=== PATIENT | male | born 1945 | race Caucasian/White ===

== ENCOUNTER 2021-04-07 08:24 | Outpatient (CLI) | payer MEDICARE, OTHER | END 2021-04-07 08:25 | disposition home or self-care (01) | LOC: TBSIIMAG 08:24 | PROVIDERS: ATTEND Urology | DX: R97.20 Elevated prostate specific antigen [PSA] (principal) | CPT/HCPCS: 72197 ==

== ENCOUNTER 2023-11-11 18:35 | Day surgery (SDC) | payer MEDICARE, OTHER ==
[2023-11-11] MEDS ORDERED: PROPOFOL 20 ML ONE (21:43)
[2023-11-11] MEDS ORDERED: Lidocaine 1% PF 5 ML VIAL ONE (21:43)
[2023-11-11] MEDS ORDERED: Succinylcholine 200 MG/10 ml SYRINGE FS ONE (21:43)
== END 2023-11-11 23:25 | disposition home or self-care (01) ==
LOC: SDC 18:35
PROVIDERS: ATTEND Emergency Medicine
PROC: 0DJ08ZZ Inspection of Upper Intestinal Tract, Via Natural or Artificial Opening Endoscopic (ICD-10-PCS; principal; 2023-11-11)
DX: T18.128A Food in esophagus causing other injury, initial encounter (principal); K21.00 Gastro-esophageal reflux disease with esophagitis, without bleeding; K26.9 Duodenal ulcer, unspecified as acute or chronic, without hemorrhage or perforation; E78.5 Hyperlipidemia, unspecified; E11.9 Type 2 diabetes mellitus without complications; Z85.040 Personal history of malignant carcinoid tumor of rectum; Z90.89 Acquired absence of other organs; Z87.891 Personal history of nicotine dependence; Z79.84 Long term (current) use of oral hypoglycemic drugs; Z79.899 Other long term (current) drug therapy
CPT/HCPCS: 36416; J2704

== ENCOUNTER 2025-11-10 07:06 | Outpatient (CLI) | payer MEDICARE, OTHER ==
[2025-11-10 08:29] LABS: Estimated GFR - POC 86.0
[2025-11-10] MEDS ORDERED: Iopamidol 370 76% 100 ML VIAL ONE (09:03)
== END 2025-11-10 07:07 | disposition home or self-care (01) ==
LOC: CT 07:06
PROVIDERS: ATTEND Internal Medicine
DX: R31.0 Gross hematuria (principal); N28.1 Cyst of kidney, acquired; N28.89 Other specified disorders of kidney and ureter; K44.9 Diaphragmatic hernia without obstruction or gangrene
CPT/HCPCS: 36415; 74178; 82565